=== PATIENT | female | born 1990 ===

== ENCOUNTER 2024-11-15 00:46 | Outpatient (CLI) | payer OTHER, SELFPAY ==
--- NOTE | 2024-11-15 06:30 | DI.US_ITS ---
Exam(s) US OB SOLO WEIGHT EXAM: US OB SOLO WEIGHT CLINICAL HISTORY: size less than dates,elderly primigravida,O26.849. TECHNIQUE: Transabdominal obstetrical ultrasound was performed. COMPARISON: No exams were available for comparison FINDINGS: There is a single viable intrauterine gestation with cardiac activity identified-141 bpm The fetus is presently in cephalic position . Amniotic fluid: There is a normal amount of amniotic fluid with an SOLO of 13.51cm. Placental location: The placenta is anterior grade 2,with no evidence of placenta previa. Dating parameters place this at approximately 34 weeks and 4 days gestational age, implying KEVYN of 12/23/2024. BPD measures 35 weeks and 3 days HC measures 36 weeks and 0 days AC measures 32 weeks and 2 days FL measures 34 weeks and 4 days Estimated weight is 2238 gm-4 pounds, 15 ounces Fetus is at the 12th percentile on the Hadlock scale. IMPRESSION:: Viable 3rd trimester gestation, as described above. The fetus is at the 12th percentile on the Hadlock scale DATA REPOSITORY:
== END 2024-11-15 01:06 ==
LOC: DI 00:48
PROVIDERS: Visit Provider Advanced Practice Midwife
DX: O09.513 Supervision of elderly primigravida, third trimester (principal); O26.843 Uterine size-date discrepancy, third trimester; Z3A.36 36 weeks gestation of pregnancy
CPT/HCPCS: 76816

== ENCOUNTER 2024-11-19 08:08 | Outpatient (REF) | payer OTHER, SELFPAY | END 2024-11-19 08:09 | disposition home or self-care (01) | LOC: LBN 08:08 | PROVIDERS: Visit Provider Advanced Practice Midwife | DX: O26.90 Pregnancy related conditions, unspecified, unspecified trimester (principal) | CPT/HCPCS: 87081 ==

== ENCOUNTER 2024-11-19 16:44 | Outpatient (CLI) | payer OTHER, SELFPAY ==
[2024-11-19 16:59] LABS: HCT 34.7 % (36.0-46.0); HGB 11.9 g/dL (11.2-15.7); MCH 31.4 pg (27.0-33.0); MCHC 34.3 % (32.0-36.0); MCV 92 fL (80-95); MPV 9.6 fL (8.0-11.0); Platelet Count 217 10^3/uL (130-400); RBC 3.79 10^6/uL (3.93-5.22); RDW 12.9 % (11.7-14.6); RDW-SD 42.6 fL; WBC 9.91 10^3/uL (4.4-10.8)
== END 2024-11-19 16:45 | disposition home or self-care (01) ==
LOC: LBO 16:52 → LBN 17:25
PROVIDERS: Advanced Practice Midwife; Visit Provider Advanced Practice Midwife
DX: Z34.93 Encounter for supervision of normal pregnancy, unspecified, third trimester (principal)
CPT/HCPCS: 36415; 85027; 86787; 86850; 86900; 86901; 87081

== ENCOUNTER 2024-12-17 08:18 | Outpatient (CLI) | payer BC, SELFPAY ==
--- NOTE | 2024-12-17 05:45 | DI.US_ITS ---
Exam(s) US OB SOLO WEIGHT EXAM: US OB SOLO WEIGHT CLINICAL HISTORY: size less than dates,fundal ht low for dates,O26.849. TECHNIQUE: Transabdominal obstetrical ultrasound was performed. COMPARISON: US US OB SOLO WEIGHT from 11/15/2024 FINDINGS: There is a single viable intrauterine gestation with cardiac activity identified-157 bpm The fetus is presently in cephalic position . Amniotic fluid: There is a normal amount of amniotic fluid with an SOLO of 11.7cm. Placental location: The placenta is anterior grade 2,with no evidence of placenta previa. Dating parameters place this at approximately 38 weeks and 3 days gestational age, implying KEVYN of 12/28/2024. BPD measures 37 weeks and 2 days HC measures 40 weeks and 6 days AC measures 36 weeks and 0 days FL measures 39 weeks and 3 days Estimated weight is 3235 gm-7 pounds, 2 ounces Fetus is at the 23rd percentile on the Hadlock scale. IMPRESSION:: Viable 3rd trimester gestation, as described above. DATA REPOSITORY:
== END 2024-12-17 08:38 ==
LOC: DI 08:18
PROVIDERS: Visit Provider Advanced Practice Midwife
DX: O26.843 Uterine size-date discrepancy, third trimester (principal); Z3A.40 40 weeks gestation of pregnancy
CPT/HCPCS: 76816

== ENCOUNTER 2024-12-25 07:37 | Outpatient (CLI) | payer BC, SELFPAY ==
[2024-12-25 15:53] VITALS: BP 105/71; PULSE 59; TEMP 36.6
[2024-12-25 16:00] VITALS: BP 105/71; PULSE 59
--- NOTE | 2024-12-25 18:18 | W.OBNST ---
Date of service: 12/25/24 Time of Service: 18:19 NST Evaluation Reason for NST Reasons for Nonstress Test: POSTDATES Gestational Age Gestational Age in Weeks and Days: 40 Weeks and 6Days Test and Monitor Explained Test/Monitor Explained: Test Explained and Monitor Explained Vital Signs Blood Pressure: 105/71 Pulse: 59 Temperature: 97.9 F Weight: 147 lb Urine Results Urine Protein: Negative Urine Ketones: Negative Urine Glucose: Negative Urine Blood: Negative NST Information Date on Monitor: 12/25/24 Time on Monitor: 15:57 Date off Monitor: 12/25/24 Time off Monitor: 16:24 Total Time on Monitor: 27 NST Interventions: None NST Evaluation Patient States Movement: Present FHR Baseline: 120 Variability: Moderate 6-25 bpm Accelerations: 15x15 Decelerations: None NST Results: Reactive Note Ultrasound Done: SOLO (postdates) Total SOLO: 10.3 Other Pertinent Findings: Heart Rate (115), Presentation (cephalic, LOP) and Placental Location (anterior) Coding for SOLO w/NST: Completed Exam. NST Note NST Reviewed and Verified by: Charley Escobar
[2024-12-25 18:19] VITALS: BP 105/71; PULSE 59; TEMP 36.6
== END 2024-12-25 17:00 ==
LOC: BCD 07:37 → OBS 15:52
PROVIDERS: Visit Provider Obstetrics & Gynecology
DX: O48.0 Post-term pregnancy (principal); Z3A.40 40 weeks gestation of pregnancy
CPT/HCPCS: 59025

== ENCOUNTER 2024-12-28 08:00 | Outpatient (CLI) | payer BC, SELFPAY ==
[2024-12-28 09:14] VITALS: BP 109/62; PULSE 59; TEMP 36.5
[2024-12-28 10:51] VITALS: BP 109/62; PULSE 59; TEMP 36.5
--- NOTE | 2024-12-28 10:51 | W.OBNST ---
Date of service: 12/28/24 Time of Service: 10:51 NST Evaluation Reason for NST Reasons for Nonstress Test: POSTDATES Gestational Age Gestational Age in Weeks and Days: 41 Weeks and 2Days Test and Monitor Explained Test/Monitor Explained: Test Explained and Monitor Explained Vital Signs Blood Pressure: 109/62 Pulse: 59 Temperature: 97.7 F Urine Results Urine Protein: Negative Urine Ketones: Negative Urine Glucose: Negative Urine Blood: Negative NST Information Date on Monitor: 12/28/24 Time on Monitor: 09:18 Date off Monitor: 12/28/24 Time off Monitor: 10:08 Total Time on Monitor: 50 NST Interventions: None NST Evaluation Patient States Movement: Present FHR Baseline: 130 Variability: Moderate 6-25 bpm Accelerations: 15x15 Decelerations: None NST Results: Reactive Note Ultrasound Done: N/A. NST Note Note: NST for post dates. reactive nST, IOL scheduled in 2 days. NST Reviewed and Verified by: Dian Choi
== END 2024-12-28 10:30 ==
LOC: BCD 08:01 → OBS 09:13
PROVIDERS: Visit Provider Advanced Practice Midwife
DX: O48.0 Post-term pregnancy (principal); Z3A.41 41 weeks gestation of pregnancy
CPT/HCPCS: 59025

== ENCOUNTER 2024-12-29 02:41 | Inpatient (IN) | payer BC, SELFPAY ==
[2024-12-29] VITALS (52 sets, daily range): BP systolic 89–145; BP diastolic 50–74; PULSE 54–100; RESP 16–18; TEMP 36.2–37.4; O2SAT 96–99; BMI 26.0
--- NOTE | 2024-12-29 03:55 | W.PM.OBHPL1 ---
Date of service: 12/29/24 Time of Service: 03:55 Assessment and Plan Assessment and plan (1) Spontaneous onset of labor: Status: Acute Assessment and plan: Admit to Center and routine admission labs. Comfort measures. Anticipate . OB-HPI Labor/Delivery History of Present Illness Reason for Visit: Spontaneous Rupture Chief Complaint: Uterine Contractions. KEVYN Calculator Estimated Delivery Date Method Current WG Current Estimate 12/19/24 LMP (Certain) 41w 3d Other Estimates 12/24/24 Ultrasound #1 40w 5d Comments: Sepideh called at 0030 and reported spontaneous rupture of membranes and leaking clear fluid. An hour later her contractions were regular and she was instructed to come into the center History of Present Expected Delivery Route/Plan - CNM FOB - Rojas Weaver BB- no circ Read Expecting Better book for childbirth classes. Rojas is support in labor GBS negative Specific Issues/Plan 1. AMA - cfDNA- low risk male 2. Increased preeclampsia risk - taking ASA daily-81 mg 3. Transfer of care at 30+5 weeks from [place], Type and screen drawn -B pos. 4. EFW/SOLO @ 39 wks for S<D: EFW in 23rd percentile, SOLO 12, cephalic Assessment: History Reviewed & Current [facility] All Active Problems (Updated 12/29/24 @ 03:59 by Dian Choi CNM) Spontaneous onset of labor (Acute) (Acute) Medical History Nose fracture Surgical History S/P nasal surgery after fracture Family History Father Hyperlipidemia Mother Hypertension Melanoma Paternal Grandfather Heart disease Social History Smoking/Tobacco Use Status: Never Smoking risk assessment performed?: Yes Alcohol Intake: never Drug use: Never Substance use type: does not use Housing: house Do you feel safe at home: Yes Do you feel safe in your relationship?: Yes History History 1 Para 0 Hx # Term Pregnancies 0 Multiple births 0 Hx # Pregnancies 0 Ectopic pregnancies 0 AB induced 0 Hx Number of Living Children 0 AB spontaneous 0 Meds Allergies and Home Medications Allergies Allergy/AdvReac Type Severity Reaction Status Date / Time No Known Allergies Allergy Verified 12/11/24 15:27 Home Medications ?Medication ?Instructions ?Recorded ?Confirmed ?Type aspirin 81 mg tablet 81 mg PO DAILY 10/15/24 12/29/24 History ferrous sulfate 134 mg (27 mg 18 mg PO DAILY 10/15/24 12/29/24 History iron) tablet vitamins no.148-iron 27 1 cap PO 10/15/24 12/25/24 History mg-folate 1 mg-dha 205 mg capsule Exam Physical Exam Vital signs: Temp Pulse Resp BP 97.2 F L 57 L 16 145/70 H 12/29/24 03:47 12/29/24 03:47 12/29/24 03:47 12/29/24 03:47 Vital Signs Reviewed: Yes Constitutional Constitutional: mild distress Detailed Labor and Delivery Exam Dilation: 2 Effacement (%): 80 station: -1 Cervix position: posterior Consistency: soft Moreira Score: Cervical Points Exam 0 1 2 3 Dilation Closed 1-2cm 3-4 cm 5-6cm Effacement 0-30% 40-50% 60-70% 80% Consistency Firm Medium Soft Station -3 -2 -1,0 +1,+2 Position Posterior Mid Anterior Amniotic Membrane Status: Ruptured Rupture Method: Spontaneous Amniotic Fluid: Clear Pooling: Positive Monitor Mode: External Contraction Frequency(min): every 2-3 Contraction Duration(sec): 60 Contraction Intensity: Mild/Moderate Fetus A Heart Rate Baseline: 120 Monitor Accelerations: 15 X 15 Monitor Decelerations: None Variability: Moderate (6-25 BPM) Presentation: Cephalic Categories: Category I Est. Weight: 7 lb Date of Membrane Rupture: 12/29/24 Time of Membrane Rupture: 00:00 HEENT Exam HEENT Exam: Normal Respiratory Exam Respiratory Exam: Normal Cardiovascular Exam Cardiovascular Exam: Normal Abdominal Exam Abdominal Exam: Normal Exam Exam: Normal Extremities Exam Extremities Exam: Normal Skin Exam Skin Exam: Normal Psychiatric Exam Psychiatric Exam: Normal Risk Assessment Risk for Shoulder Dystocia Historical/Initial OB: NEGATIVE FOR: Pelvic Abnormality, Pre- BMI>30, Previous Shoulder Dystocia or Previous Macrosomia 36 Weeks: NEGATIVE FOR: Current Gestational DM, EFW>4500gms or Maternal Weight Gain>40lbs 40 Weeks: POSTIVE FOR: Post Dates; NEGATIVE FOR: EFW> 4500 gms or Maternal Weight Gain >40lb Risk for Pre-Eclampsia Yes, if one or more: NEGATIVE FOR: Hx Pre-E/Gest HTN, Chronic HTN, Multiple Gestation, Pre-gestational DM, Renal Disease, Systemic Lupus or APA Syndrome Yes, if 2 or more: POSITIVE FOR: Nulliparity and Age>= 35 yrs; NEGATIVE FOR: >10yr btwn pregnancies, BMI>30, ethinicty, Mother/Sister w/ Pre-E or Previous IUGR Risk for Post- Hemorrhage Initial: NEGATIVE FOR: Multiple Gestation, Previous PPH, Known Clotting Deficiency, Grand Multiparity or Anticoagulation 36 Weeks: NEGATIVE FOR: Anemia, hgb<10, Low platelets(thrombocytopenia), Gestational HTN or Pre-E, Polyhydraminios or EFW>4500gms 40 Weeks: NEGATIVE FOR: Anemia, hgb<10, Low platelets (thrombocytopenia), Gestation HTN or Pre-E, Polyhydraminios or EFW>4500gms At Risk?: No Risks Reviewed Risks Reviewed Upon Admission: Yes
--- NOTE | 2024-12-29 04:00 | W.OBNST ---
Date of service: 12/29/24 Time of Service: 04:01 NST Evaluation Reason for NST Reasons for Nonstress Test: OTHER, SEE COMMENT Reason for NST Other: SROM Gestational Age Gestational Age in Weeks and Days: 41 Weeks and 3Days Test and Monitor Explained Test/Monitor Explained: Test Explained, Monitor Explained and Patient Verbalized Understanding Vital Signs Blood Pressure: 145/70 Pulse: 57 Temperature: 97.2 F Weight: 147 lb Urine Results Urine Protein: Negative Urine Ketones: Negative Urine Glucose: Negative Urine Blood: Negative NST Information Date on Monitor: 12/29/24 Time on Monitor: 02:54 Date off Monitor: 12/29/24 Time off Monitor: 03:31 Total Time on Monitor: 37 NST Interventions: PO Hydration Contraction Frequency: 2-5 min NST Evaluation Patient States Movement: Present FHR Baseline: 115 Variability: Moderate 6-25 bpm Accelerations: 15x15 Decelerations: None NST Results: Reactive Note Ultrasound Done: N/A. NST Note Note: Grossly ruptured at 41 weeks gestation and experiencing regular contractions. reactive NST. Admitted in early labor NST Reviewed and Verified by: Dian Choi
[2024-12-29 04:27] LABS: HCT 39.7 % (36.0-46.0); HGB 13.6 g/dL (11.2-15.7); MCH 31.0 pg (27.0-33.0); MCHC 34.3 % (32.0-36.0); MCV 90 fL (80-95); MPV 10.3 fL (8.0-11.0); Platelet Count 233 10^3/uL (130-400); RBC 4.39 10^6/uL (3.93-5.22); RDW 12.3 % (11.7-14.6); RDW-SD 40.3 fL; WBC 11.07 10^3/uL (4.4-10.8)
--- NOTE | 2024-12-29 07:53 | W.PM.OBNL1 ---
Date of service: 12/29/24 Time of Service: 07:53 Pelvic Exam Comments: cervical exam deferred Contractions Monitor Mode: External Contraction Frequency(min): every 2-3 min Contraction Duration(sec): 60 Intensity: Moderate Fetus A Monitor: Doppler Heart Rate Baseline: 120 Assessment and Plan Assessment and plan (1) Spontaneous onset of labor: Status: Acute Assessment and plan: Will start IV and prepare for epidural analgesia. Will examine cervix after epidural placed. Anticipate . Objective Abnormal lab results 12/29/24 Range/Units 04:12 WBC 11.07 H (4.4-10.8) 10^3/uL Temp Pulse Resp BP 97.9 F 69 16 109/57 L 12/29/24 06:35 12/29/24 04:34 12/29/24 03:59 12/29/24 04:34 Laboratory Results WBC 11.07 10^3/uL (4.4-10.8) H 12/29/24 04:12 RBC 4.39 10^6/uL (3.93-5.22) 12/29/24 04:12 Hgb 13.6 g/dL (11.2-15.7) 12/29/24 04:12 Hct 39.7 % (36.0-46.0) 12/29/24 04:12 MCV 90 fL (80-95) 12/29/24 04:12 MCH 31.0 pg (27.0-33.0) 12/29/24 04:12 MCHC 34.3 % (32.0-36.0) 12/29/24 04:12 RDW 12.3 % (11.7-14.6) 12/29/24 04:12 Plt Count 233 10^3/uL (130-400) 12/29/24 04:12 MPV 10.3 fL (8.0-11.0) 12/29/24 04:12 ABO/Rh B Positive 12/29/24 04:12 Antibody Screen NEGATIVE 12/29/24 04:12 Vital Signs Reviewed: Yes Subjective Patient Reports: New Complaints Interval history since last seen: Sepideh has been using nitrous oxide for pain relief with fair effect.She has been using position changes and is coping well with contractions. She requested an epidural Results Hemoglobin/Hematocrit: Hgb 13.6 g/dL (11.2-15.7) 12/29/24 04:12 Hct 39.7 % (36.0-46.0) 12/29/24 04:12 Abnormal Lab Findings: Abnormal Labs 12/29/24 04:12 WBC 11.07 H
[2024-12-29] MEDS: Lactated Ringers 250 ML 500 ML IV (08:00)
[2024-12-29] MEDS: FentaNYL/ROPIvacaine 2 mcg/ml and 0.1% 200 ML CADD Cassette EP (08:44)
--- NOTE | 2024-12-29 08:50 | W.ANESNEU ---
Epidural/Spinal Catheter Date Performed: 12/29/24 Procedure Start: 08:30 Procedure Stop: 08:35 Requesting Provider: Dian Choi Procedure Location: Obstetrics Reason Performed: Labor Epidural Standard Monitors Applied: Blood Pressure and SpO2 Patient Position: Sitting Sedation Given (Indicate Dose Given): No Sedation given Patient Mental Status: Awake Sterility: Hand Hygiene, Surgical Cap, Surgical Mask, Sterile Gloves, Sterile Drape/Sheet and Chlorhexidine Procedure Location: L3-L4 Interspace Epidural Needle: Tuohy 17 Guage Needle Length: 3.5 Inch Needle Approach: Midline Epidural Procedure: 1% Lidocaine to skin and subcutaneous tissue with 25G needle, KIMMY to Saline Used, Negative Heme and Negative CSF Flow Catheter Placed?: Catheter Placed (19 ga flex tip plus) Test Dose (Indicate Dose Given): 3ml 1.5% Lidocaine with 1:200K Epinephrine Given (remaining 2 mL given after negative test dose. ) and Negative Test Dose Loss of Resistance Depth (cm): 5 Catheter depth at skin (cm): 11 Dressing: Sorbaview Dressing Placed, Mastisol Used and Dressing reinforced with Tape Epidural Provider Bolus (Indicate Dose Given): Total Ropivacaine 0.1% with Fentanyl 2mcg/ml Given from pump. (ml) Dose:: 5 mL Additives (Indicate Dose Given ): None Infusion Medication: Medication Infusion Began Medication Infusion: Ropivacaine 0.1% with Fentanyl 2mcg/ml Maintenance Infusion Rate (ml/hour): 10 PCEA Bolus Dose (ml): 5 Block Level: N/A Paresthesia: None Ultrasound: Used to walt site Number of Attempts (See previous attempts in note section): 1 Procedure Tolerated: No Complications Procedure Outcome: Successful Procedure Comment:: More comfortable bilaterally after placement. Discussed PCEA function, and narcan for itching/naseua. Performed By: Shashank Hilton
--- NOTE | 2024-12-29 08:55 | ANES.PREOP_ITS ---
General Info Date of Service Date Performed: 12/29/24 Height: 5 ft 3 in Weight: 66.678 kg Body Mass Index (BMI): 26.0 Meds Allergies and Home Medications Allergies Allergy/AdvReac Type Severity Reaction Status Date / Time No Known Allergies Allergy Verified 12/11/24 15:27 Home Medication ?Medication ?Instructions ?Recorded aspirin 81 mg tablet 81 mg PO DAILY 10/15/24 ferrous sulfate 134 mg (27 mg 18 mg PO DAILY 10/15/24 iron) tablet vitamins no.148-iron 27 1 cap PO 10/15/24 mg-folate 1 mg-dha 205 mg capsule Current Visit Medications: Current Medications Generic Name Dose Route Start Last Admin Trade Name Freq PRN Reason Stop Dose Admin Ephedrine Sulfate 5 mg 12/29/24 08:13 Ephedrine 50 Mg/Ml Vial IVP DIRECTED PRN Fentanyl/Ropivacaine 200 ml 12/29/24 08:15 Fentanyl/Ropivacaine 2 Mcg/Ml And 0.1% 200 Ml Cadd Cassette EP DIRECTED MOE Naloxone HCl 2 mg/ Sodium 500 mls @ 8.335 mls/hr 12/29/24 08:53 Chloride IV INFUSION PRN pruritis 0.5 MCG/KG/HR IV Miscellaneous Supplies 1 each 12/29/24 04:00 Iv Access IV DIRECTED MOE Naloxone HCl 0 mg 12/29/24 08:13 Naloxone 0.4 Mg/Ml Vial IVP DIRECTED PRN Naloxone HCl 0.04 mg 12/29/24 08:53 Naloxone 0.4 Mg/Ml Vial IVP PRN PRN PRURITIS Ondansetron HCl 4 mg 12/29/24 08:13 Ondansetron 4 Mg/2 Ml Vial IVP Q6H PRN PRN Nausea Sodium Chloride 0 ml 12/29/24 03:54 Normal Saline Flush 10 Ml Syr IVP PRN PRN Sodium Chloride 0 ml 12/29/24 08:30 Normal Saline Flush 10 Ml Syr IVP BID MOE Sodium Chloride 0 ml 12/29/24 03:54 Normal Saline 10 Ml Vial IJ DIRECTED PRN PFSH Active Problems Active Problems: Problem Status Onset Code Spontaneous onset of labor Acute Acute Z34.90 Medical History Medical History Nose fracture Surgical History Surgical History (Reviewed 12/17/24 @ 16:32 by JACINTA Campbell S/P nasal surgery after fracture Tobacco Smoking/Tobacco Use Status: Never Alcohol Alcohol Intake: never Substance Use Substance use: Never Substance use type: does not use Prental History History 2 1 Para 0 Hx # Term Pregnancies 0 Multiple births 0 Hx # Pregnancies 0 Ectopic pregnancies 0 AB induced 0 Hx Number of Living Children 0 AB spontaneous 0 Vital Signs and Lab Results Vital Signs Most Recent Vital Signs in EMR: Most Recent Vital Signs Temp Pulse Resp BP 36.6 C 69 16 109/57 L 12/29/24 06:35 12/29/24 04:34 12/29/24 03:59 12/29/24 04:34 Lab Results 12/29/24 04:12 Blood Type / Crossmatch: 2 Antibody Screen NEGATIVE Today Complete Blood Count: 2 WBC, (4.4-10.8) 11.07 10^3/uL H Today, 04:12 RBC, (3.93-5.22) 4.39 10^6/uL Today, 04:12 Hgb, (11.2-15.7) 13.6 g/dL Today, 04:12 Hct, (36.0-46.0) 39.7 % Today, 04:12 Plt Count, (130-400) 233 10^3/uL Today, 04:12 Anesthesia Assessment and Plan Anesthesia History Personal History: No History of Anesthesia Complications Family History: No Family History of Anesthesia Complications Exercise Tolerance Exercise Tolerance: Metabolic Equivalents>4 Cardiac & Pulmonary Exam Cardiac Exam: Normal S1/S2 Heart Sounds Pulmonary Exam: Clear Bilateral Breath Sounds Implantable Cardiac Device Does patient have a Pacemaker or an ICD?: No Airway Exam Known Difficult Airway: No Mallampati Class: 3 Mouth Opening: Narrow (< 3cm) Thyromental Distance: Less than 3 cm Neck Range of Motion: Full ROM Neck Circumference: Normal Teeth Condition: Normal Dentition ASA Classification ASA Score: ASA 1 Emergency Case?: No NPO Status NPO Status: NPO Clears >2 hours, Solids >8 hours Status Status: Confirmed Anesthesia Plan Resuscitation Status: Full Code Anesthesia Technique: Epidural Anesthesia Airway Planned: Natural Airway Pain Management: Epidural Monitors Used: Standard Monitors Preoperative Comments:: 34 yo , 41 3/7 with SROM requesting labor analgesia. Denies sig PMHx. No HTN No RAD/asthma. plt 233. IV placed with US by ER.
[2024-12-29] MEDS: Lactated Ringers 1,000 ML 500 ML IV (09:10)
[2024-12-29] MEDS: Lactated Ringers 1,000 ML 125 ML IV (11:22)
[2024-12-29] MEDS: Oxytocin/Normal Saline 30 UNIT/500 ML BAG 2 UNITS IV (11:24)
--- NOTE | 2024-12-29 15:55 | PGE_ITS ---
Date of service: 12/29/24 Time of Service: 15:56 Pelvic Exam Dilation: 140 station: +1 Vaginal Exam Presentation: Cephalic Contractions Monitor Mode: External Contraction Frequency(min): every 2-3 Contraction Duration(sec): 60 Intensity: Strong Fetus A Monitor: External (US) Heart Rate Baseline: 140 Variability: Moderate (6-25 BPM) Categories: Category I FHR Rhythm: Regular Accelerations: 15 X 15 Decelerations: Variable Recurrence: Intermittent Assessment and Plan Assessment and plan (1) Spontaneous onset of labor: Status: Acute Assessment and plan: Assisted with pushing and anticipate . Dr Wheatley is present on the unit and aware of her progress. Objective Abnormal lab results 12/29/24 Range/Units 04:12 WBC 11.07 H (4.4-10.8) 10^3/uL Temp Pulse Resp BP Pulse Ox 98.6 F 67 16 119/58 L 99 12/29/24 15:20 12/29/24 15:20 12/29/24 15:30 12/29/24 15:20 12/29/24 15:20 Laboratory Results WBC 11.07 10^3/uL (4.4-10.8) H 12/29/24 04:12 RBC 4.39 10^6/uL (3.93-5.22) 12/29/24 04:12 Hgb 13.6 g/dL (11.2-15.7) 12/29/24 04:12 Hct 39.7 % (36.0-46.0) 12/29/24 04:12 MCV 90 fL (80-95) 12/29/24 04:12 MCH 31.0 pg (27.0-33.0) 12/29/24 04:12 MCHC 34.3 % (32.0-36.0) 12/29/24 04:12 RDW 12.3 % (11.7-14.6) 12/29/24 04:12 Plt Count 233 10^3/uL (130-400) 12/29/24 04:12 MPV 10.3 fL (8.0-11.0) 12/29/24 04:12 ABO/Rh B Positive 12/29/24 04:12 Antibody Screen NEGATIVE 12/29/24 04:12 Subjective Patient Reports: No new Complaints Interval history since last seen: Sepideh received epidural. She had progressed to 4 cms at 0900. She slept and rested comfortably. Her contractions spaced to 5 minutes apart and pitocin augmentation was started. She had a regular contraction pattern and progressd to full dilation and 0-+1 station at 1330. She had no urge to push and had been p ushing TECHNICAL SALES CONSULTANT button and was encouraged to stop pushing and was allowed to labor down to + 1 station Results Hemoglobin/Hematocrit: Hgb 13.6 g/dL (11.2-15.7) 12/29/24 04:12 Hct 39.7 % (36.0-46.0) 12/29/24 04:12 Abnormal Lab Findings: Abnormal Labs 12/29/24 04:12 WBC 11.07 H
--- NOTE | 2024-12-29 19:01 | W.PM.OP ---
Operative Note Operative Note PRE-OP DIAGNOSIS: Fourth degree perineal laceration PROCEDURE: Repair of fourth degree perineal laceration SURGEON: Swathi Wheatley Refer to Anesthesia Record Procedure Description: I was called to the room following delivery of the baby surrounding concerns for possible involvement of the rectal sphincter. Evaluation of the perineum revealed full-thickness tear of the sphincter with the right side of the external sphincter retracted. Rectal mucosa was distally involved. The patient's epidural was noted to be adequate for the repair. The ends of the external sphincter were identified and grasped with Allis clamps. These were held up while I addressed the rectal mucosa. A 4-0 vicryl was anchored at the apex of the defect internally and run along the rectal mucosa to the anal verge. Attention was then turned to the sphincters. The Allis clamps were used to identify the two ends of the sphincter which reapproximated naturally in an overlapping fashion with a figure-of-8 stitch using 2-0 vicryl. I then utilized the remainder of the guarded 2-0 vicryl suture initiated originally by the production lapping machine operator to intiate the repair. She had completed the repair of the vaginal mucosa. Therefore, I dove the stitch into the perineal tissues and completed a crown stitch. I then reapproximated the deep perineal tissues. I tied off the suture and opted to reapproximate the perineal skin using a separate 2-0 vicryl suture. Upon completion of the reapproximation, a small defect was noted in the center of the perineal skin which was addressed using a single 4-0 vicryl stitch. A single digit rectal exam confirmed appropriate closure of the rectal mucosa without palpable suture. Good hemostasis was appreciated, and the recovery was handed back over to the production lapping machine operator. Date of Procedure: 12/29/24
--- NOTE | 2024-12-29 19:49 | W.OBDELIVERY ---
Date of service: 12/29/24 Time of Service: 19:49 OB Labor/ Delivery Information Baby A Delivery Delivery Method: Spontaneaous Presentation: Cephalic Vertex Position: Left Occipital Anterior Cord Description-Baby A: 3 Vessels Cord Description Comment: short cord Amniotic Fluid: Clear Quantitative Blood Loss: 450 Delivery Outcome: Liveborn Infant Transferred: Remains with Mother Note: FHTs 120-130 during first stage of labor. FHTs 140a in second stage with variable decelerations with pushing. Dr tate was called to be present for delivery due to recurrent deceleration. She progressed to full dilation and began pushing. Second stage huddle was done. Spontaneous delivery of male infant delivered in AVA position. Baby was placed on mother's abdomen and dried and stimulated. Spontaneous cry. Dr Wheatley was present for delivery and leo cord gasses. Cord was clamped and cut by the baby's father. The placenta delivered spontaneously and appears to by intact with a three vessel cord. Pitocin 30 units IV was administered before delivery of the placenta. The perineum was inspected and bilateral sulcus tear was noted and 3rd degree extension. The baby did breastfeed. After delivery, Mother and baby and father of the baby were stable and bonding well in the delivery room and there were no complications. Providers Nurse Heel Seat Sander: Dian Choi Nurse: Columba Meneses Nurse: Jac Claire Labor/Delivery Information Number of Babies in Womb: 1 Steroids Given: None Reason Steroids Not Administered: N/A Group Beta Strep: N/A Antibiotics Administered: No Rubella Status: Immune Blood Type: B+ Varicella Immunity: Immune Born En Route: No Maternal Complications: None Shoulder Dystocia: No Stages of Labor Onset of Labor Date: 12/29/24 Onset of Labor Time: 00:00 Complete Dilatation Date: 12/29/24 Complete Dilatation Time: 14:09 Labor - Stage 1 Duration: 14 hours and 9 minutes ROM Baby A: 12/29/24 ROM Baby A: 00:00 ROM Total Time- Baby A: [id number] Infant Delivery Date-Baby A: 12/29/24 Infant Delivery Time-Baby A: 18:13 Labor Stage 2 Duration: 4 hours and 4 minutes Placenta Delivery Date-Baby A: 12/29/24 Placenta Delivery Time-Baby A: 18:22 Labor-Stage 3 Duration: 9 minutes Total Length of Labor-Baby A: 18 hours and 13 minutes Placenta Status: Delivered Baby A Gender: Male Gestational Status: Term (39-41.6 wks) Gestational Age in Weeks/Days: 41 Weeks and 3 Days Score-1 Minute Interval(Baby A) Heart Rate-1 minute: 100 BPM or Greater Respiratory Effort- 1 minute: Spontaneous/Strong Cry Muscle Tone-1 minute: Active Movement Reflex Response-1 minute: Prompt Response Color-1 minute: Bluish Hands or Feet Total Score-1 minute: 9 Score-5 Minute Interval(Baby A) Heart Rate- 5 minute: 100 BPM or Greater Respiratory Effort-5 minute: Spontaneous/Strong Cry Muscle Tone-5 minute: Active Movement Reflex Response-5 minute: Prompt Response Color-5 minute: [place]/No Cyanosis Total Score- 5 minute: 10 Interventions Repair of Laceration Type: Sulcus, Laceration Extension: Third Degree. Sponge Count Correct: No Sponges Placed in Vagina, Sharp Count Correct: Yes. Laceration Repair Note: small bilateral sulcus tears were reapproximated with 3-0 vicryl suture. 3rd degree laceration was noted and Dr Wheatley was consulted and she repaired that under epidural analgesia ( see note).
[2024-12-29] MEDS: Acetaminophen 325 MG TAB 650 MG PO (22:49)
[2024-12-29] MEDS: Hamamelis Leaf/Glycerin 100 EACH BOX PR (22:49)
[2024-12-29] MEDS: Ibuprofen 600 MG TAB PO (22:49)
[2024-12-29] MEDS: Dibucaine 1% 28 GM TUBE TP (22:50)
[2024-12-30 02:31] VITALS: BP 112/67; PULSE 64; RESP 18; TEMP 36.6; O2SAT 99
[2024-12-30 06:32] VITALS: BP 99/63; PULSE 64; RESP 18; O2SAT 99
[2024-12-30] MEDS: Dibucaine 1% 28 GM TUBE TP (08:29)
[2024-12-30] MEDS: Acetaminophen 325 MG TAB 650 MG PO ×3 (08:30→21:31)
[2024-12-30] MEDS: Docusate Sodium 100 MG CAP PO ×2 (08:30→21:31)
[2024-12-30] MEDS: Ibuprofen 600 MG TAB PO ×3 (08:31→21:31)
[2024-12-30 08:36] VITALS: BP 105/67; PULSE 60; RESP 14; TEMP 36.3
--- NOTE | 2024-12-30 13:30 | W.ANESPOSTOP ---
Postoperative Evaluation Date, Time and Location Date Performed: 12/30/24 Time Performed: 13:30 Patient Location: Obstetrics Vital Signs Most Recent Imported Vital Signs: Most Recent Vital Signs Temp Pulse Resp BP Pulse Ox 36.3 C L 60 14 105/67 99 12/30/24 08:36 12/30/24 08:36 12/30/24 08:36 12/30/24 08:36 12/30/24 06:32 Pain Score Most Recent Pain Score: Most Recent Pain Score Pain Level [Lower Abdomen] 1 12/30/24 06:32 Pain Level 3 12/30/24 08:31 Assessment Mental Status: Awake (Alert & Oriented to Patient Baseline) Airway and Respiratory Function: Patent airway with normal (patient baseline) respiratory exam Cardiovascular Function: Hemodynamically Stable Hydration Status: Adequately Hydrated Nausea & Vomiting: No Nausea or Vomiting Pain: Pain is tolerable per patient Peripheral Nerve Block: Patient did not receive a nerve block
[2024-12-30 21:16] VITALS: BP 104/65; PULSE 59; RESP 18; TEMP 36.6
[2024-12-31] MEDS: Acetaminophen 325 MG TAB 650 MG PO (06:42)
[2024-12-31] MEDS: Ibuprofen 600 MG TAB PO (06:43)
[2024-12-31 08:10] VITALS: BP 109/69; PULSE 61; RESP 16; TEMP 36.5; O2SAT 97
[2024-12-31] MEDS: Docusate Sodium 100 MG CAP PO (08:38)
--- NOTE | 2025-01-01 06:55 | DSE_ITS ---
Date of service: 01/01/25 Time of Service: 06:55 DS: Diagnosis Discharge Diagnosis (1) Fourth degree perineal laceration during delivery, condition or complication: Status: Acute Asessment and Plan: Caring for baby independently. Pain is managed well with oral analgesics. Voiding without difficulty. well. A - stable mother and baby , Post day 2 P - Discharge to home today. Routine post instructions. Follow up at [facility]. Discharge Plan Disposition Patient Disposition: Home Condition: Good Discharge Details Reason For Visit: Spontaneous Rupture Admit Date/Time: 12/29/24 03:54 Admit Provider: Dian Choi Attending Provider: Dian Choi Primary Care Provider: Unknown,Unknown Home Meds and New Rx's Prescriptions: No Action aspirin 81 mg tablet 81 mg PO DAILY ferrous sulfate 134 mg (27 mg iron) tablet 18 mg PO DAILY Patient Comments: 10/15/24- pt reports takes 18 mg of iron [id number] 6-dha 27 mg iron-1 mg -205 mg capsule 1 cap PO Discharge Instructions Activity:: Activity as Tolerated Equipment/Supplies:: No Equipment Needed Diet:: As Tolerated Discharge Orders Discharge Orders: Discharge Order (Routine); Ordered 12/31/24 Ordered By: Dian Choi Discharge Data Discharge Date/Time-TO BE ENTERED AT DEPARTURE: 12/31/24 12:10 OB:DS Summary Summary Vaginal Delivery Method: Spontaneaous Laceration Description: Sulcus Laceration Extension: Third Degree Contraception Discussed Contraception Discussed: Yes Contraceptive Plan: Undecided, Infant Gender-Baby A: Male Status at Discharge Functional status at discharge: independent ambulation Overall status at discharge: patient is back to baseline Mental Status: mental status grossly normal Speech and Movement: speech and movement normal Mood: congruent mood Affect: normal affect Exam Physical Exam Vital signs: Temp Pulse Resp BP Pulse Ox 97.7 F 61 16 109/69 97 12/31/24 08:10 12/31/24 08:10 12/31/24 08:10 12/31/24 08:10 12/31/24 08:10 Vital Signs Reviewed: Yes Constitutional Constitutional: no acute distress HEENT Exam HEENT Exam: Normal Respiratory Exam Respiratory Exam: Normal Cardiovascular Exam Cardiovascular Exam: Normal Fundal Exam Fundus: Below Umbilicus and Firm Rectal Exam Rectal Exam: Normal Exam Patient deferred: external exam Perineum: Bruising Comments: No edema. Well approximated Extremities Exam Extremity Exam: Normal Skin Exam Skin Exam: Normal Psychiatric Exam Psychiatric Exam: Normal PFSH All Active Problems (Updated 01/01/25 @ 00:04 by RADHA SIERRA) Term of male (Acute) Fourth degree perineal laceration during delivery, condition or complication (Acute) (Acute) Medical History Nose fracture Surgical History S/P nasal surgery after fracture Family History Father Hyperlipidemia Mother Hypertension Melanoma Paternal Grandfather Heart disease Social History Smoking/Tobacco Use Status: Never Smoking risk assessment performed?: Yes Alcohol Intake: never Drug use: Never Substance use type: does not use Housing: house Do you feel safe at home: Yes Do you feel safe in your relationship?: Yes History History 1 Para 0 Hx # Term Pregnancies 0 Multiple births 0 Hx # Pregnancies 0 Ectopic pregnancies 0 AB induced 0 Hx Number of Living Children 0 AB spontaneous 0 DS: Data Vitals/I&O Vitals and I&O: Vital Signs Temperature 97.7 F 12/31/24 08:10 Temperature 97.2 F 12/29/24 04:01 Temperature Source Oral 12/31/24 08:10 Pulse 61 12/31/24 08:10 Pulse 57 12/29/24 04:01 Pulse Rhythm Regular 12/31/24 08:30 Respiratory Rate 16 12/31/24 08:10 Blood Pressure 109/69 12/31/24 08:10 Blood Pressure 145/70 12/29/24 04:01 Blood Pressure Mean 82 12/31/24 08:10 Pulse Oximetry 97 12/31/24 08:10 Oxygen Delivery Method Room Air 12/29/24 03:59 Oxygen Flow Rate 0 12/29/24 03:59 Pain Level 3 12/30/24 21:31 Intake & Output 12/31/24 12/31/24 01/01/25 11:59 23:59 11:59 Other: Urine Color Pale
--- NOTE | 2025-01-01 06:58 | W.PM.OBDISCH ---
Date of service: 12/30/24 Time of Service: 16:00 DS: Diagnosis Discharge Diagnosis (1) Fourth degree perineal laceration during delivery, condition or complication: Status: Acute Asessment and Plan: Caring for baby independently. Pain is managed well with oral analgesics. Voiding without difficulty. well with assistance of Columba SINGLETARY. A - stable mother and baby , Post day 1, 4th degree laceration P - Discharge to home tomorrow. Routine post instructions. Follow up at [facility]. Discharge Plan Disposition Patient Disposition: Home Condition: Good Discharge Details Reason For Visit: Spontaneous Rupture Admit Date/Time: 12/29/24 03:54 Admit Provider: Dian Choi Attending Provider: Dian Choi Primary Care Provider: Unknown,Unknown Home Meds and New Rx's Prescriptions: No Action aspirin 81 mg tablet 81 mg PO DAILY ferrous sulfate 134 mg (27 mg iron) tablet 18 mg PO DAILY Patient Comments: 10/15/24- pt reports takes 18 mg of iron [id number] 6-dha 27 mg iron-1 mg -205 mg capsule 1 cap PO Discharge Instructions Activity:: Activity as Tolerated Equipment/Supplies:: No Equipment Needed Diet:: As Tolerated Discharge Orders Discharge Orders: Discharge Order (Routine); Ordered 12/31/24 Ordered By: Dian Choi Discharge Data Discharge Date/Time-TO BE ENTERED AT DEPARTURE: 12/31/24 12:10 OB:DS Summary Summary Vaginal Delivery Method: Spontaneaous Laceration Description: Sulcus Laceration Extension: Third Degree Contraception Discussed Contraception Discussed: Yes, Gender-Baby A: Male Status at Discharge Functional status at discharge: independent ambulation Overall status at discharge: patient is back to baseline Mental Status: mental status grossly normal Speech and Movement: speech and movement normal Mood: congruent mood Affect: normal affect Exam Physical Exam Vital signs: Temp Pulse Resp BP Pulse Ox 97.7 F 61 16 109/69 97 12/31/24 08:10 12/31/24 08:10 12/31/24 08:10 12/31/24 08:10 12/31/24 08:10 Vital Signs Reviewed: Yes Constitutional Constitutional: no acute distress HEENT Exam HEENT Exam: Normal Respiratory Exam Respiratory Exam: Normal Cardiovascular Exam Cardiovascular Exam: Normal Fundal Exam Fundus: Below Umbilicus and Firm Rectal Exam Rectal Exam: Normal Exam Perineum: Bruising Comments: No edema, well approximated Skin Exam Skin Exam: Normal Psychiatric Exam Psychiatric Exam: Normal DetailedPsychiatric Exam Psych Exam: Normal Affect and Cooperative PFSH All Active Problems (Updated 01/01/25 @ 00:04 by RADHA SIERRA) Term of male (Acute) Fourth degree perineal laceration during delivery, condition or complication (Acute) (Acute) Medical History Nose fracture Surgical History S/P nasal surgery after fracture Family History Father Hyperlipidemia Mother Hypertension Melanoma Paternal Grandfather Heart disease Social History Smoking/Tobacco Use Status: Never Smoking risk assessment performed?: Yes Alcohol Intake: never Drug use: Never Substance use type: does not use Housing: house Do you feel safe at home: Yes Do you feel safe in your relationship?: Yes History History 1 Para 0 Hx # Term Pregnancies 0 Multiple births 0 Hx # Pregnancies 0 Ectopic pregnancies 0 AB induced 0 Hx Number of Living Children 0 AB spontaneous 0 DS: Data Vitals/I&O Vitals and I&O: Vital Signs Temperature 97.7 F 12/31/24 08:10 Temperature 97.2 F 12/29/24 04:01 Temperature Source Oral 12/31/24 08:10 Pulse 61 12/31/24 08:10 Pulse 57 12/29/24 04:01 Pulse Rhythm Regular 12/31/24 08:30 Respiratory Rate 16 12/31/24 08:10 Blood Pressure 109/69 12/31/24 08:10 Blood Pressure 145/70 12/29/24 04:01 Blood Pressure Mean 82 12/31/24 08:10 Pulse Oximetry 97 12/31/24 08:10 Oxygen Delivery Method Room Air 12/29/24 03:59 Oxygen Flow Rate 0 12/29/24 03:59 Pain Level 3 12/30/24 21:31 Intake & Output 12/31/24 12/31/24 01/01/25 11:59 23:59 11:59 Other: Urine Color Pale
== END 2024-12-31 12:10 | disposition home or self-care (01) | DRG 768 ==
PROVIDERS: Admitting Provider Advanced Practice Midwife; Visit Provider Advanced Practice Midwife
DX: O48.0 Post-term pregnancy (principal); Z37.0 Single live birth; O70.3 Fourth degree perineal laceration during delivery; Z3A.41 41 weeks gestation of pregnancy; O69.3XX0 Labor and delivery complicated by short cord, not applicable or unspecified
CPT/HCPCS: 59300; 36415; 85027; 86850; 86900; 86901; 59025